=== PATIENT | male | born 1945 | race Caucasian/White ===

== ENCOUNTER → 2017-12-29 | Outpatient (CLI) | payer OTHER ==
[~2017-12-29] MED LIST: ADULT LOW DOSE81 MG PO; FENOGLIDE40 MG PO; LISINOPRIL10 MG PO; LISINOPRIL2.5 MG PO; LYRICA 50 MG50 MG PO; NEURONTIN 300300 M1 PO; OXYCODONE-ACET1 EACH PO; PERCOCET PO; TRIGLIDE160 M1 PO; VOLTAREN100 GM TP
== END ==
LOC: CAT 10:43
DX: M19.011 Primary osteoarthritis, right shoulder (principal); G89.29 Other chronic pain

== ENCOUNTER → 2018-02-17 | Outpatient (CLI) | payer OTHER | LOC: MRI 12:29 | DX: S32.010A Wedge compression fracture of first lumbar vertebra, initial encounter for closed fracture (principal); M47.817 Spondylosis without myelopathy or radiculopathy, lumbosacral region; M51.27 Other intervertebral disc displacement, lumbosacral region; M48.07 Spinal stenosis, lumbosacral region; W19.XXXA Unspecified fall, initial encounter; Y93.89 Activity, other specified; Y92.89 Other specified places as the place of occurrence of the external cause; Y99.8 Other external cause status; Z68.27 Body mass index [BMI] 27.0-27.9, adult ==

== ENCOUNTER → 2018-02-21 | Outpatient (CLI) | payer OTHER ==
[~2018-02-21] VITALS: Ht 170.2 cm; Wt 77.1 kg
[~2018-02-21] MED LIST changes: +FLOMAX0.4 MG PO; +ZANAFLEX4 MG PO
[2018-02-21 08:40] VITALS: BP 167/77
[2018-02-21 08:51] LABS: HEMATOCRIT 43.7 % (42.0-52.0); HEMOGLOBIN 14.6 gm/dL (14.0-18.0); MCH 28.5 pg (26.0-34.0); MCHC 33.5 g/dL (28.0-37.0); MCV 85.2 fL (80.0-100.0); RBC 5.13 mil/uL (4.50-6.00); RDW 14.2 % (10.5-14.5); WBC 8.4 thou/uL (4.0-11.0)
[2018-02-21 08:57] LABS: CALCIUM 9.4 mg/dL (8.5-10.1); CREATININE 1.6 mg/dL (0.7-1.3); POTASSIUM 4.3 mmol/L (3.5-5.1)
[2018-02-21 09:01] LABS: APTT 27.8 Seconds (24.5-32.8); PROTIME 10.9 Seconds (9.3-11.4)
[2018-02-21 10:45] VITALS: BP 118/60
== END | disposition home or self-care (01) ==
LOC: SPEC 06:29
PROVIDERS: Family Medicine
DX: S32.010A Wedge compression fracture of first lumbar vertebra, initial encounter for closed fracture (principal); M54.5 Low back pain; I10 Essential (primary) hypertension; E78.1 Pure hyperglyceridemia; Z98.890 Other specified postprocedural states; Z88.8 Allergy status to other drugs, medicaments and biological substances; Z79.82 Long term (current) use of aspirin; Z79.899 Other long term (current) drug therapy; Z79.891 Long term (current) use of opiate analgesic; X58.XXXA Exposure to other specified factors, initial encounter; Y93.89 Activity, other specified; Y92.89 Other specified places as the place of occurrence of the external cause; Y99.8 Other external cause status

== ENCOUNTER → 2018-11-25 | Outpatient (CLI) | payer OTHER | LOC: CAT 10:55 | DX: M19.011 Primary osteoarthritis, right shoulder (principal); M25.711 Osteophyte, right shoulder ==

== ENCOUNTER 2018-12-21 05:45 | Inpatient (IN) | payer OTHER ==
[2018-12-13 13:32] LABS: HEMATOCRIT 46.1 % (42.0-52.0); HEMOGLOBIN 15.1 gm/dL (14.0-18.0); MCH 28.5 pg (26.0-34.0); MCHC 32.8 g/dL (28.0-37.0); MCV 86.8 fL (80.0-100.0); RBC 5.31 mil/uL (4.50-6.00); RDW 15.2 % (10.5-14.5); URINE BILIRUBIN NEGATIVE (Negative); URINE BLOOD NEGATIVE (Negative); URINE CLARITY CLEAR; URINE COLOR YELLOW; URINE GLUCOSE-RANDOM* NEGATIVE (Negative); URINE KETONES NEGATIVE (Negative); URINE LEUKOCYTES-REFLEX 1+ (Negative); URINE NITRITE-REFLEX NEGATIVE (Negative); URINE PROTEIN (DIPSTICK) NEGATIVE (Negative); URINE SPECIFIC GRAVITY 1.015 (1.005-1.035); URINE UROBILINOGEN 0.2 E.U./dl (0.2-1.0); WBC 5.5 thou/uL (4.0-11.0)
[2018-12-13 13:44] LABS: BACTERIA-REFLEX 1-9 Few /HPF (None Seen); CALCIUM 9.8 mg/dL (8.5-10.1); CASTS None Seen /LPF (None Seen); CREATININE 1.5 mg/dL (0.7-1.3); CRYSTALS None Seen /LPF (None Seen); POTASSIUM 4.2 mmol/L (3.5-5.1); SQUAMOUS None Seen /LPF (0-3); URINE RBC 0-2 Rare /HPF (0-2); URINE WBC-REFLEX 0-5 Rare /HPF (0-5)
[2018-12-13 13:48] LABS: INR 1.1
--- NOTE | 2018-12-14 08:05 | EKG ---
[place] [address] [facility] [place] [address] ELECTROCARDIOGRAM REPORT Name: JOVAN MYRICK Room #: PRE IN RYeni#: [id number] ������������������ Admission: ������������������ Attend Phys: Elias Smith Discharge: ������������������ Date of : 47 Report #: [id number] ����������������������������������������������������������������� [id number] THIS REPORT FOR: //name// [facility] Test Date: 2018-12-13 Test Time: 13:22:49 Pat Name: JOVAN MYRICK Department: Room: Gender: Tester Sound: Abdulaziz MENDOZA : 1945 Requested By: Elias Dailey Order Number: [id number] MD: Piotr Mitchell Measurements Intervals [place] Rate: 60 P: 47 NM: 166 QRS: 9 QRSD: 97 T: 26 QT: 406 QTc: 406 Interpretive Statements Sinus rhythm Cannot rule out Inferior infarct, old Compared to ECG 01/17/2014 14:46:59 No significant changes Electronically Signed On 12-14-2018 8:05:28 CDT by Piotr Mitchell [email or web address] ��������������������������������������������� <ELECTRONICALLY SIGNED> ���������������������������������������� By: Piotr Mitchell MD, [facility] ��������������������������������������������� 12/14/18 0805 1322 1322 Piotr Mitchell MD, FACC /EPI
[~2018-12-21] VITALS: Ht 170.2 cm; Wt 80.3 kg
--- NOTE | ~2018-12-21 | O ---
[facility] [place] [address] OPERATIVE REPORT Name: JOVAN MYRIKC Room #: 462-P [facility] IN M.R.#: [id number] Admission: 12/21/18 ������������������ Attend Phys: Elias Smith Discharge: ������������������ Date of : 47 Report #: [id number] THIS REPORT FOR: //name// CC: Elias Alejandrabrent Covarrubias DATE OF SERVICE: 12/21/2018 PREOPERATIVE DIAGNOSES: Right shoulder pain, osteoarthritis with posterior glenoid bone loss and biceps tendinopathy. POSTOPERATIVE DIAGNOSES: Right shoulder pain, osteoarthritis with posterior glenoid bone loss and biceps tendinopathy. PROCEDURE PERFORMED: Right total shoulder arthroplasty with augmented Step-Tech glenoid and open biceps tenodesis. SURGEON: Elias Dailey MD FINISHING AREA OPERATOR: Audra Donis PA-C. ANESTHESIA: General with preoperative ultrasound-guided interscalene block. FLUIDS: Approximately 1200 mL crystalloid. ESTIMATED BLOOD LOSS: Approximately 75 mL. IMPLANTS UTILIZED: DePuy Global Unite stem size 10 with a 44+3 Step-Tech augmented glenoid and a 48 x 18 eccentric humeral head, size 12, Global Unite proximal body and stem placement. DESCRIPTION OF PROCEDURE: After proper identification of the patient and operative site in preoperative holding area, the operative site was signed by myself. Prophylactic antibiotics given. The patient elected to receive an ultrasound-guided block after reviewing the risks, benefits, alternatives and potential complications with anesthesia. After a satisfactory block, the patient was brought back to the operative suite after induction of satisfactory general anesthesia per endotracheal tube. The patient was carefully positioned in the beach chair position with head of bed elevated approximately 40 degrees. Shoulder and scapula were stabilized. This was sterilely prepped and draped in the usual manner. A final skin draping with Ioban. A IMScouting limb positioning system was utilized throughout the entire procedure. Anterior deltopectoral approach was planned. Skin was incised sharply. Full thickness skin flaps were developed. Cephalic vein was identified and retracted laterally. Subdeltoid adhesions were freed bluntly. Seng deltoid retractor was utilized and at this point, the upper border of the pectoralis major was [address] [address] OPERATIVE REPORT Name: JOVAN MYRICK Room #: 462-P ADM IN M.R.#: [id number] Admission: 12/21/18 ������������������ Attend Phys: Elias Smith Discharge: ������������������ Date of : 47 Report #: [id number] carefully divided for approximately a centimeter and the biceps was tenodesed to the undersurface of the pectoralis major using #2 FiberWire. Long head of biceps was followed proximally. Bicipital groove was opened. Partial thickness tearing was noted in this region. Rotator interval was then opened. At this point, circumflex vessels were identified, ligated and tied and a lesser tuberosity osteotomy was performed with a thin flexible osteotome. Capsule was carefully released off the inferior humeral head. Pronounced flattening and arthrosis was noted on the humeral side with deformity and a large inferior spur was noted. Using 135 degree cutting guide at approximately 20 degrees of retroversion, humeral head osteotomy was performed. The rotator cuff was intact. Peripheral osteophytes were carefully removed. This was reamed by hand up to a size 12 stem. Trial broaches were utilized. Protection plate was placed and the head measured best. Recreation of the proximal humeral anatomy was of 48 eccentric 18 mm thick humeral head. Anterior capsule was carefully released off the subscapularis. Axillary nerves identified and protected throughout the entire procedure. Remaining labrum, biceps tendon were carefully excised. Inferior capsule was released directly off the glenoid and inferior scapula. Posterior glenoid bone loss was noted consistent with the preoperative imaging studies. A +5 guide was utilized for pin placement. Anterior face was reamed and to approximately the 50 yard line and then the double Tani reamer was utilized for any more peripheral reaming. Excess soft tissue was carefully removed. Step drill was utilized. Next, the guide for the Step-Tech rasp was carefully positioned and provisionally secured with the breakaway pins. Next, the posterior step was carefully reamed by hand using the oscillating rasp until it had fully created the step for the augmented glenoid. After this had been carefully prepared, the guides were removed. This area was irrigated with normal saline and the translucent glenoid was placed. There was excellent fluid interface. This appeared to be fully seated. Next, the multi-peg guide was carefully impacted into position, anterior and inferior followed by the posterior inferior and then the superior. Derotation pegs were drilled. Derotation pegs were utilized. All the peripheral pegs were contained. This area was thoroughly irrigated with normal saline and antibiotic irrigant. FloSeal was utilized and this had been performed after a trial had been implanted and it was noted to be well contained and fully seated. The implant was bone grafted and cement had been prepared on the back table and placed in a Tuohy syringe. FloSeal was irrigated free and the peripheral pegs were cemented. Excess bone cement was removed. The implant was carefully impacted into position. Central peg had been bone grafted. It was fully seated, stable and held in position until the cement had cured. Next, this was protected and then face of the glenoid was reamed and a 48 x 18 eccentric humeral head was placed. There was excellent stability of the joint translation approximately 50% with pushback noted of the posterior capsular structures. Trial implants were removed. Global Unite brosteotome was utilized. Four drill holes were placed in the anterior aspect of the humerus where #2 FiberWires were passed. The inferior 2 were placed around the stem after it had been assembled [facility] [address] [place] [address] OPERATIVE REPORT Name: JOVAN MYRICK Room #: 462-P [facility] IN .R.#: [id number] Admission: 12/21/18 ������������������ Attend Phys: Elias Smith Discharge: ������������������ Date of : 47 Report #: [id number] on the back table. A Global Unite humeral stem had been assembled. It was carefully impacted, had excellent position and then the 48 x 18 mm eccentric humeral head was carefully positioned and impacted into position, it was then reduced. The joint had been thoroughly irrigated multiple times throughout the procedure with antibiotic irrigant. Subscapularis was repaired with modified Syd-Arron technique. Lateral portion of the rotator interval was closed with #2 FiberWire. One gram vancomycin powder was utilized, half of it deep, half of it more superficial followed by 0 Vicryl, 2-0 Vicryl and a running Monocryl for final skin closure. Dermabond was used to seal the incision. An Aquacel dressing was applied. He was awakened and transferred to the recovery room in stable condition. Qualified first coat sander was utilized throughout the entire procedure to aid in patient limb positioning, visualization and retraction of soft tissues, instrument passage, closure and sling and dressing application. ��������������������������������������������� ���������������������������������������� By: ��������������������������������������������� [id number] Elias Dailey MD /nt
[~2018-12-21 05:45] MED LIST changes: +VITAMIN D5000 UNIT PO
[2018-12-21 06:22] VITALS: BP 124/67
[2018-12-21 11:45] VITALS: BP 111/47
[2018-12-21 13:05] VITALS: BP 123/63
[2018-12-21 14:00] VITALS: BP 132/75
[2018-12-21 15:00] VITALS: BP 139/69
--- NOTE | 2018-12-21 18:45 | NUR ---
PT TO THE UNIT FROM THE PACU POST SHOULDER REPLACEMENT ON THE L. ARM IN IMMOBILIZER WITH POLAR ICE APPLIED. VSS AND NEURO CHECKS STABLE POST OP. PT PRAMOD DIET AND FLUIDS. UP TO THE BATHROOM HAS VOIDED POST-OP. UP TO THE HAIR TO EAT SUPPER - NO CO'S OF PAIN OR NAUSEA. APPEARS TO BE COMFORTABLE AT THE PRESENT TIME.
[2018-12-21 19:29] VITALS: BP 116/70
[2018-12-22 03:54] VITALS: BP 121/81
[2018-12-22 05:44] LABS: HEMATOCRIT 43.3 % (42.0-52.0); HEMOGLOBIN 14.1 gm/dL (14.0-18.0)
[2018-12-22 06:02] LABS: POTASSIUM 4.3 mmol/L (3.5-5.1)
--- NOTE | 2018-12-22 07:51 | NUR ---
progress pt a/o x4, vss. denies pain right arm in sling, shoulder with iceman in place, good pulse, sensation intact, hospital pharmacy technician strong, brisk cap refill, and denies need for pain medication. up with sba. voiding per urinal small amounts at a times bladder scanned with 513 ml's noted pt refused straight cath, voiding at longer intervals with more output each time. advised pt we could watch but if he continues to retain urine we may have to straight cath him for comfort. pt r/v understanding continue to monitor.
[2018-12-22 08:05] VITALS: BP 139/66
--- NOTE | 2018-12-22 14:25 | NUR ---
PT A&OX4, VSS, PAIN IN RIGHT SHOULDER. PAIN MANAGED WITH MEDICATION. PATIENT STATES HIS BLADDER DOESNT FEEL FULL TODAY AND HE FEELS HE IS VOIDING COMPLETELY. PATIENT HAD OT AND REFUSED PT TODAY. DRESSING C/D/I, ARM IN SLING, NO SIGNS OF DISTRESS, WILL CONTINUE TO MONITOR.
[2018-12-22 15:13] VITALS: BP 139/66
== END 2018-12-22 15:47 | disposition home or self-care (01) | DRG 483 ==
LOC: TBA 05:45 → 4W 05:45 → PRE 08:07 → 4W 11:35 → PRE 12:49 → 4W 12-22 15:47
PROVIDERS: Physician Assistant Surgical; ADMIT Orthopaedic Surgery Sports Medicine
PROC: 0RRJ0JZ Replacement of Right Shoulder Joint with Synthetic Substitute, Open Approach (ICD-10-PCS; principal; 2018-12-21)
PROC: 0LS30ZZ Reposition Right Upper Arm Tendon, Open Approach (ICD-10-PCS; principal; 2018-12-21)
DX: M19.011 Primary osteoarthritis, right shoulder (principal); M75.21 Bicipital tendinitis, right shoulder; N40.0 Benign prostatic hyperplasia without lower urinary tract symptoms; I10 Essential (primary) hypertension; Z96.612 Presence of left artificial shoulder joint; M75.40 Impingement syndrome of unspecified shoulder; M75.100 Unspecified rotator cuff tear or rupture of unspecified shoulder, not specified as traumatic; Z79.82 Long term (current) use of aspirin; Z79.899 Other long term (current) drug therapy; Z88.7 Allergy status to serum and vaccine; Z47.1 Aftercare following joint replacement surgery
CPT/HCPCS: 10047; 50010; 50101; 50172; 50386; 50417; 50697; 50733; 50935; 51320; 51751; 52001; 52138; 52256; 52282; 53000; 53023; 53078; 54118; 55430; 56524; 56525; 56526; 56530; 57095; 57103; 62110; 62900; 65060; 70005